=== PATIENT | male | born 1965 | race Hispanic/Latino ===

== ENCOUNTER 2024-06-19 12:19 | Emergency (ER) | payer OTHER ==
[~2024-06-19] VITALS: Ht 172.7 cm; Wt 72.6 kg
[2024-06-19 12:23] VITALS: TEMP 98.8
[2024-06-19] MEDS ORDERED: [UNRECOGNIZED DRUG - CODE] PO (12:47)
[2024-06-19] MEDS ORDERED: CLIN-141 PO (12:47)
--- NOTE | 2024-06-19 12:47 | ERN ---
General Chief Complaint: Headache Stated Complaint: MIGRANE/SINUS ATTACK Time Seen by MD: 12:21 Source: patient History of Present Illness Initial Comments PATIENT IS A 59-YEAR-OLD MALE COMING IN TO BE EVALUATED FOR LEFT FACIAL DISCOMFORT. PATIENT STATES HE HAS A EXTENSIVE HISTORY OF SINUSITIS AND FREQUENTLY GETS FLARE-UPS. PATIENT HAS NOT BEEN EVALUATED BY HIS PCP SINCE HE MOVED TO THIS AREA AND DOES NOT HAVE A LOCAL PCP. Allergies: Coded Allergies: Penicillins (Unverified Allergy, Unknown, 06/19/24) Past Medical History Past Medical History: Diabetes-Type II, High Cholesterol, Hypertension Past Surgical History: Other Surgical History Other: ABDOMINAL SX AND MESH PLACEMENT ROS Dictation CONSTITUTIONAL: NO CHILLS, NO FEVER, NO WEAKNESS, NO DIAPHORESIS, NO MALAISE. HEAD/FACE: NO SIGNS OF TRAUMA. EENT: NO EYE PAIN, NO BLURRED VISION, NO TEARING, NO DOUBLE VISION, NO EAR PAIN, NO EAR DISCHARGE, NO NOSE PAIN, NO NASAL CONGESTION, NO THROAT PAIN, NO THROAT SWELLING, NO MOUTH PAIN. RESPIRATORY: COUGH, NO ORTHOPNEA, NO SOB, NO STRIDOR, NO WHEEZING. CARDIOVASCULAR: NO CHEST PAIN, NO EDEMA, NO PALPITATIONS, NO SYNCOPE. GASTROINTESTINAL/ABDOMINAL: NO ABDOMINAL PAIN, NO CONSTIPATION, NO DIARRHEA, NO NAUSEA, NO VOMITING. GENITOURINARY: NO ABNORMAL DISCHARGE, NO DYSURIA, NO FREQUENT URINATION, NO HEMATURIA. NO COMPLAINTS OF PAIN IN THE GENITALS. MUSCULOSKELETAL: NO BACK PAIN, NO GOUT, NO JOINT PAIN, NO JOINT SWELLING, NO MUSCLE PAIN, NO MUSCLE STIFFNESS, NO NECK PAIN. INTEGUMENTARY: NO CHANGE IN COLOR, NO CHANGE IN HAIR/NAILS, NO DRYNESS, NO LESION, NO LUMPS, NO RASH. NEUROLOGICAL/PSYCH: NO ANXIETY, NOT DEPRESSED, NO EMOTIONAL PROBLEM, NO HEADACHE, NO NUMBNESS, NO PRE-EXISTING DEFICIT, NO HISTORY OF SEIZURES, NO TREMORS, NO WEAKNESS. HEMATOLOGIC/LYMPHATIC: NOT ANEMIC, NO HISTORY OF BLOOD CLOTS, NO APPARENT BLEEDING, NO BRUISING, GLANDS NOT SWOLLEN. ALL SYSTEMS NEGATIVE, EXCEPT NOTED. Physical Exam Physical Exam Dictation VITAL SIGNS: REVIEWED. GENERAL APPEARANCE: ALERT, ORIENTED X3, NO ACUTE DISTRESS, OBESE. HEAD AND FACE: NON-TRAUMATIC. EYES: PERRL, PINK CONJUNCTIVAS, EYELID NO TRAUMA, ANTERIOR CHAMBER CLEAR. EARS: PINNAS INTACT AND NO SIGNS OF TRAUMA OR ERYTHEMA. EAR CANALS CLEAR AND NO DISCHARGE. TMS ERYTHEMA. NOSE: NO DISCHARGE, NO BLEEDING. LEFT SIDE NASAL TURBINATE SWELLING OROPHARYNX: MOUTH NORMAL, TEETH NO CARIES, TONGUE PINK. PHARYNX CLEAR, ERYTHEMA. TONSILS NO EXUDATES, NO ABSCESSES NOTED. MUCOUS MEMBRANE MOIST. NECK: SUPPLE, NON-TENDER, NO THYROMEGALY, NO MASSES, NO JVD, NO BRUITS. BREAST: DEFERRED. CHEST: NO TENDERNESS, NO CREPITUS, NO PARADOXICAL MOVEMENT, NO RETRACTIONS. LUNGS: CLEAR, WELL-VENTILATED, SYMMETRIC, NO RALES, NO WHEEZING, NO RHONCHI, NO STRIDOR, GOOD BREATH SOUNDS BILATERALLY. HEART: REGULAR RATE, REGULAR RHYTHM, NO MURMUR, NO GALLOPS. VASCULAR: NO PERIPHERAL EDEMA. ABDOMEN: SOFT, POSITIVE BOWEL SOUNDS, NONDISTENDED, NO GUARDING, NONTENDER, NO REBOUND, NO MASSES NO HEPATOMEGALY, NO SPLENOMEGALY, NO COTE'S SIGN, NO HERNIAS. RECTAL: DEFERRED. GENITAL: DEFERRED. NEUROLOGICAL: NORMAL SPEECH, GROSS MOTOR FUNCTION INTACT, GROSS SENSORY FUNCTION INTACT. MUSCULOSKELETAL: NECK NONTENDER, FULL RANGE OF MOTION, BACK NONTENDER, FULL RANGE OF MOTION. EXTREMITIES: NONTENDER, FULL RANGE OF MOTION. SKIN: COLOR PINK, DRY, NO TURGOR, NO RASH, NO LACERATIONS, NO ABRASIONS, NO CONTUSIONS. LYMPHATICS: DEFERRED. Results Laboratory and Microbiology Labs Reviewed?: Yes MDM MDM: DIFFERENTIAL DIAGNOSIS: LEFT MAXILLARY SINUS TENDERNESS, SINUSITIS PATIENT IS A 59-YEAR-OLD MALE COMING IN TO BE EVALUATED FOR LEFT FACIAL DISCOMFORT. PATIENT HAS A EXTENSIVE HISTORY OF SINUSITIS. HE STATES HE HAS BEEN HAVING THIS DISCOMFORT FOR PAST 30 DAYS. PATIENT WILL BE DISCHARGED WITH A DIAGNOSIS OF LEFT MAXILLARY SINUS. ANTIBIOTICS WILL BE PROVIDED PATIENT HAS BEEN STABLE THROUGHOUT ER VISIT. ED Course Vital Signs Date Time Temp Pulse Resp B/P (MAP) Pulse Ox O2 Delivery O2 Flow Rate FiO2 06/19/24 12:23 98.8 80 20 161/90 97 Room Air 0 DX & DISP Disposition: Discharge Departure Impression: Primary Impression: Left maxillary sinusitis Condition: Stable Scripts Phenylephrine/Acetaminophn/Cpm (Flonase Headache 325-2-5Mg Cpt) 5 Mg-325 Mg-2 Mg Tablet 1 EACH PO BID for 7 Days, #14 TAB Prov: SHERIN KEMP MD 06/19/24 Clindamycin HCl (Clindamycin HCl) 300 Mg Capsule 1 CAP PO TID for 10 Days, #30 CAP 0 Refills Prov: SHERIN KEMP MD 06/19/24 Additional Instructions: FOLLOW-UP WITH PRIMARY CARE PROVIDER IN 1 TO 2 DAYS. TAKE MEDICATIONS DIRECTED HERE IN THE EMERGENCY ROOM. OKAY TO CONTINUE HOME MEDICATIONS UNLESS OTHERWISE DISCUSSED DURING YOUR VISIT IN THE EMERGENCY ROOM TODAY. RETURN TO YOUR NEAREST EMERGENCY ROOM IF SYMPTOMS WORSEN OR IF THERE IS NO IMPROVEMENT. CALL 911 IF YOU NEED IMMEDIATE ASSISTANCE. TAKE TYLENOL [id number] NEEDED AND IF NO CONTRAINDICATIONS ARE PRESENT. INCREASE ORAL HYDRATION. A WOUND CULTURE OR URINE CULTURE WAS ORDERED HERE IN THE EMERGENCY ROOM DEPARTMENT PLEASE FOLLOW-UP WITH PRIMARY CARE PROVIDER AND ADVISE THEM TO GET REPEAT PORTS FROM OUR FACILITY. IF YOU HAD ANY RYLAN WRAP/SPLINTS THAT WERE APPLIED HERE, PLEASE DO NOT REMOVE THEM UNTIL YOU SEE YOUR PRIMARY CARE OR SPECIALTY. REFERRALS: Referrals: DAVID STRINGER DO (PCP) Time of Disposition: 12:45 SHERIN KEMP MD Jun 19, 2024 12:47
[2024-06-19 12:58] VITALS: BP 143/88; PULSE 80; RESP 16; O2SAT 98
== END 2024-06-19 13:02 | disposition home or self-care (01) ==
LOC: EDH 12:19
DX: J32.0 Chronic maxillary sinusitis (principal); E11.9 Type 2 diabetes mellitus without complications; E78.00 Pure hypercholesterolemia, unspecified; I10 Essential (primary) hypertension; Z88.0 Allergy status to penicillin; Z98.890 Other specified postprocedural states
CPT/HCPCS: 99283

== ENCOUNTER 2024-06-21 15:42 | Emergency (ER) | payer OTHER ==
[~2024-06-21] VITALS: Ht 172.7 cm; Wt 74.8 kg
[~2024-06-21 15:42] MED LIST: CLIN-141 PO; [UNRECOGNIZED DRUG - CODE] PO
--- NOTE | 2024-06-21 16:15 | ERN ---
General Chief Complaint: Headache Stated Complaint: HEAD DISCOMFORT LEADING TO LEFT EYE PAIN/BLURRY Time Seen by MD: 15:44 History of Present Illness Initial Comments 59-year-old male who presents for left-sided face discomfort. Reports he has had it for years. Has been diagnosed with migraines and cluster headaches in the past. He recently was seen at this ER and was diagnosed with sinusitis. He was discharged with Flonase and clindamycin. He reports Flonase is not helping and the clindamycin is making him switch. He still reports headache. He denies any blurry vision, nausea vomiting, neck pain, or focal neurologic deficits. Medical history: Diabetes, hypertension, high cholesterol Allergies: Coded Allergies: Penicillins (Unverified Allergy, Unknown, 06/19/24) Home Meds Active Scripts Phenylephrine/Acetaminophn/Cpm (Flonase Headache 325-2-5Mg Cpt) 5 Mg-325 Mg-2 Mg Tablet, 1 EACH PO BID for 7 Days, #14 TAB Prov:SHERIN KEMP MD 06/19/24 Clindamycin HCl (Clindamycin HCl) 300 Mg Capsule, 1 CAP PO TID for 10 Days, #30 CAP 0 Refills Prov:SHERIN KEMP MD 06/19/24 Past Medical History Past Medical History: Diabetes-Type II, High Cholesterol, Hypertension, Migrai blanka Past Surgical History: Other Surgical History Other: ABDOMINAL SX AND MESH PLACEMENT ROS Dictation CONSTITUTIONAL: No chills, no fever, no weakness, no diaphoresis, no malaise. HEAD/FACE: No signs of trauma. EENT: No eye pain, no blurred vision, no tearing, no double vision, no ear pain, no ear discharge, no nose pain, no nasal congestion, no throat pain, no throat swelling, no mouth pain. RESPIRATORY: No cough, no orthopnea, no SOB, no stridor, no wheezing. CARDIOVASCULAR: No chest pain, no edema, no palpitations, no syncope. GASTROINTESTINAL/ABDOMINAL: No abdominal pain, no constipation, no diarrhea, no nausea, no vomiting. GENITOURINARY: No abnormal discharge, no dysuria, no frequent urination, no hematuria. No complaints of pain in the genitals. MUSCULOSKELETAL: No back pain, no gout, no joint pain, no joint swelling, no muscle pain, no muscle stiffness, no neck pain. INTEGUMENTARY: No change in color, no change in hair/nails, no dryness, no lesion, no lumps, no rash. NEUROLOGICAL/PSYCH: Left-sided headache HEMATOLOGIC/LYMPHATIC: Not anemic, no history of blood clots, no apparent bleeding, no bruising, glands not swollen. All Systems Negative, Except as Noted. Physical Exam Physical Exam Dictation VITAL SIGNS: Reviewed. GENERAL APPEARANCE: Alert, oriented x3, no acute distress HEAD AND FACE: Non-traumatic. EYES: PERRL, pink conjunctivas, eyelid no trauma, anterior chamber clear. EARS: Pinnas intact and no signs of trauma or erythema. Ear canals clear and no discharge. TMs no erythema. NOSE: No discharge, no bleeding. OROPHARYNX: Mouth normal, teeth no caries, tongue pink. Pharynx clear, no erythema. Tonsils no exudates, no abscesses noted. Mucous membrane moist. NECK: Supple, non-tender, no thyromegaly, no masses, no JVD, no bruits. BREAST: Deferred. CHEST: No tenderness, no crepitus, no paradoxical movement, no retractions. LUNGS: Clear, well-ventilated, symmetric, no rales, no wheezing, no rhonchi, no stridor, good breath sounds bilaterally. HEART: Regular rate, regular rhythm, no murmur, no gallops. VASCULAR: No peripheral edema. ABDOMEN: Soft, positive bowel sounds, nondistended, no guarding, nontender, no rebound, no masses no hepatomegaly, no splenomegaly, no Kaba's sign, no hernias. RECTAL: Deferred. GENITAL: Deferred. NEUROLOGICAL: Normal speech, gross motor function intact, gross sensory function intact. MUSCULOSKELETAL: Neck nontender, full range of motion, back nontender, full range of motion. EXTREMITIES: Nontender, full range of motion. SKIN: Color pink, dry, no turgor, no rash, no lacerations, no abrasions, no contusions. LYMPHATICS: Deferred. ED Course Orders Procedure Category Date Status Time Prochlorperazine PHA 06/21/24 Complete 10mg/2ml Inj 16:00 Diphenhydramine Hcl PHA 06/21/24 Complete (Benadryl Inj) 16:00 Ketorolac PHA 06/21/24 Complete Tromethamine 15mg/Ml 16:00 Dexamethasone 4mg/Ml PHA 06/21/24 Complete 1ml Vial (Dexametha 16:00 0.9%Nacl 1000ml (Ns PHA 06/21/24 Complete 1000ml) 16:00 Ct Head/Brain W/O CT 06/21/24 Resulted Contrast 18:16 Current Medications Medications (Trade) Dose Ordered Sig/Antonio Route PRN Reason Start Time Stop Time Status Last Admin Dose Admin Dexamethasone Sodium Phosphate (dexaMETHasone 4MG/ML 1ML VIAL) 4 mg ONCE ONCE IV 06/21/24 16:00 06/21/24 16:01 DC 06/21/24 17:32 Diphenhydramine HCl (BENAdryl INJ) 25 mg ONCE ONCE IV 06/21/24 16:00 06/21/24 16:01 DC Ketorolac Tromethamine (toRADol) 15 mg ONCE ONCE IV 06/21/24 16:00 06/21/24 16:01 DC 06/21/24 17:32 Prochlorperazine Edisylate (Compazine 10mg/ 2ml Inj) 5 mg ONCE ONCE IV 06/21/24 16:00 06/21/24 16:01 DC 06/21/24 17:32 Sodium Chloride 1,000 ml @ 0 mls/hr ONCE ONCE IV 06/21/24 16:00 06/21/24 16:01 DC 06/21/24 17:33 Vital Signs Date Time Temp Pulse Resp B/P (MAP) Pulse Ox O2 Delivery O2 Flow Rate FiO2 06/21/24 18:32 97.3 61 18 133/63 97 Room Air* 0 21 06/21/24 15:43 98.4 78 18 155/84 97 Room Air 0 DX & DISP Disposition: Discharge Departure Impression: Primary Impression: Headache Condition: Stable Scripts Azithromycin (Azithromycin) 250 Mg Tablet 1 TAB PO AD for 5 Days, #6 TAB 0 Refills 2 the first day followed by 1 for days 2-5 Prov: DONA MISTRY DO 06/21/24 Butalb/Acetaminophen/Caffeine (Fioricet) 50 Mg-325 Mg-40 Mg Tab 1 TAB PO Q4H for headache, #20 TAB Prov: DONA MISTRY DO 06/21/24 Additional Instructions: You may have cluster headaches, trigeminal neuralgia, or possibly complex migraines. The CT scan of your brain is unremarkable. Your symptoms may be due to sinus discomfort. Stop taking the clindamycin since you are having side effects. I have prescribed azithromycin instead. Take as prescribed. I've also prescribed fioricet. Try this medication the next time you get a headache. This medication has been shown to be effective with some migraines. Please follow up with Dr Heredia. Return to the emergency department as needed. Referrals: DAVID STRINGER DO (PCP) DONA MISTRY DO Jun 21, 2024 16:15
[2024-06-21] MEDS: DiphenhydrAMINE HCL 50 MG/ML VIAL IV ONE (17:31)
[2024-06-21] MEDS: PROCHLORPERAZINE 10MG/2ML INJ IV ONE (17:32)
[2024-06-21] MEDS: dexaMETHasone SOD PHOSPHATE 4 MG/ML 1ML VIAL IV ONE (17:32)
[2024-06-21] MEDS: ketOROlac 15MG/ML VIAL (15MG/ML) IV ONE (17:32)
[2024-06-21] MEDS: 0.9%NACL 1000ML 1,000 ML IV ONE (17:33)
--- NOTE | 2024-06-21 18:46 | HMCIMG ---
CT HEAD/BRAIN W/O CONTRAST HISTORY: Headaches COMPARISON: None TECHNIQUE: Multiple sequential axial images of the head were obtained from the base of the skull through vertex. Patient was not given contrast through intravenous route. FINDINGS: The ventricles and extraventricular CSF spaces are nondilated for patient's age. There is no midline shift, mass effect or herniation. No acute intracranial bleed is seen. Visualized portion of the paranasal sinuses are grossly within normal limits. IMPRESSION: 1. No acute intracranial bleed is seen. CT was performed with one or more following dose reduction techniques: automated exposure control, adjustment of the mA and kv according to patient's size, or use of a iterative reconstruction technique.
[2024-06-21] MEDS ORDERED: AZIT250T9 PO (18:52)
[2024-06-21] MEDS ORDERED: FIORIT PO (18:52)
[2024-06-21 19:18] VITALS: BP 130/67; PULSE 64; RESP 20; TEMP 97.4; O2SAT 97
== END 2024-06-21 19:19 | disposition home or self-care (01) ==
LOC: EDH 15:42
DX: G43.909 Migraine, unspecified, not intractable, without status migrainosus (principal); E11.9 Type 2 diabetes mellitus without complications; E78.00 Pure hypercholesterolemia, unspecified; I10 Essential (primary) hypertension; Z88.0 Allergy status to penicillin
CPT/HCPCS: 99285; 96374; 70450; 96375; 96361; J1100; J1200; J7030; J0780; J1885

== ENCOUNTER 2024-06-27 14:55 | Emergency (ER) | payer OTHER ==
[~2024-06-27] VITALS: Ht 172.7 cm; Wt 72.6 kg
[~2024-06-27 14:55] MED LIST changes: +AZIT250T9 PO; +FIORIT PO
[2024-06-27 15:24] VITALS: BP 136/81; PULSE 66; RESP 20; TEMP 98.7; O2SAT 100
[2024-06-27] MEDS: 0.9%NACL 1000ML 1,000 ML IV ONE (15:24)
[2024-06-27] MEDS: DiphenhydrAMINE HCL 50 MG/ML VIAL IV ONE (15:24)
[2024-06-27] MEDS: PROCHLORPERAZINE 10MG/2ML INJ IV ONE (15:24)
[2024-06-27 15:37] LABS: CREATININE 1.2 mg/dL (0.5-1.3); POTASSIUM 4.4 mmol/L (3.5-5.1)
[2024-06-27 15:48] LABS: BASOPHILS # (AUTO) 0.03 K/uL (0.00-0.20); BASOPHILS % (AUTO) 0.3 % (0.0-5.0); EOSINOPHILS # (AUTO) 0.18 K/uL (0.00-0.70); HEMATOCRIT 45.7 % (42-54); IMMATURE GRANULOCYTE ABSOLUTE 0.02 K/uL (0-1); LYMPHOCYTES # (AUTO) 2.8 K/uL (1.0-4.8); LYMPHOCYTES % (AUTO) 31.1 % (21.0-51.0); MEAN CORPUSCULAR HEMOGLOBIN 28.6 pg (27.0-33.0); MEAN CORPUSCULAR HGB CONC 33.5 g/dL (32.0-36.0); MEAN CORPUSCULAR VOLUME 85.4 fL (79-99); MONOCYTES # (AUTO) 0.6 K/uL (0.1-1.0); MONOCYTES % (AUTO) 6.7 % (3.0-13.0); NEUTROPHILS # (AUTO) 5.3 K/uL (1.8-7.7); NEUTROPHILS % (AUTO) 59.7 % (40.0-77.0); PLATELET COUNT (AUTO) 253 K/uL (130-400); RED BLOOD CELL COUNT(AUTO) 5.35 MIL/uL (4.50-6.20); RED CELL DISTRIBUTION WIDTH 13.2 % (11.0-15.5); WHITE BLOOD COUNT (AUTO) 8.8 K/uL (4.8-10.8)
[2024-06-27] MEDS ORDERED: LORA10TA7 PO (15:58)
[2024-06-27] MEDS ORDERED: FLUT16H NS (15:58)
--- NOTE | 2024-06-27 15:58 | ERN ---
General Chief Complaint: Headache Stated Complaint: SORE THROAT, LEFT HEAD PRESSURE Time Seen by MD: 15:00 Source: patient History of Present Illness Initial Comments PATIENT IS A 59-YEAR-OLD COMING IN TO BE EVALUATED FOR CHRONIC HEADACHES. PATIENT WAS SEEN AT ER SEVERAL MONTHS OF THE REASON. ALONG WITH THE HEADACHE PATIENT HAS BEEN HAVING NASAL CONGESTION AND SORE THROAT. Allergies: Coded Allergies: Penicillins (Unverified Allergy, Unknown, 06/19/24) Home Meds Active Scripts Azithromycin (Azithromycin) 250 Mg Tablet, 1 TAB PO AD for 5 Days, #6 TAB 0 Refills 2 the first day followed by 1 for days 2-5 Prov:DONA MISTRY DO 06/21/24 Butalb/Acetaminophen/Caffeine (Fioricet) 50 Mg-325 Mg-40 Mg Tab, 1 TAB PO Q4H for headache, #20 TAB Prov:DONA MISTRY DO 06/21/24 Phenylephrine/Acetaminophn/Cpm (Flonase Headache 325-2-5Mg Cpt) 5 Mg-325 Mg-2 Mg Tablet, 1 EACH PO BID for 7 Days, #14 TAB Prov:SHERIN KEMP MD 06/19/24 Clindamycin HCl (Clindamycin HCl) 300 Mg Capsule, 1 CAP PO TID for 10 Days, #30 CAP 0 Refills Prov:SHERIN KEMP MD 06/19/24 Past Medical History Past Medical History: Diabetes-Type II, High Cholesterol, Hypertension, Migraines Past Surgical History: Other Surgical History Other: ABDOMINAL SX AND MESH PLACEMENT ROS Dictation CONSTITUTIONAL: NO CHILLS, NO FEVER, NO WEAKNESS, NO DIAPHORESIS, NO MALAISE. HEAD/FACE: NO SIGNS OF TRAUMA. EENT: NO EYE PAIN, NO BLURRED VISION, NO TEARING, NO DOUBLE VISION, NO EAR PAIN, NO EAR DISCHARGE, NOSE PAIN, NASAL CONGESTION, THROAT PAIN, NO THROAT SWELLING, NO MOUTH PAIN. RESPIRATORY: NO COUGH, NO ORTHOPNEA, NO SOB, NO STRIDOR, NO WHEEZING. CARDIOVASCULAR: NO CHEST PAIN, NO EDEMA, NO PALPITATIONS, NO SYNCOPE. GASTROINTESTINAL/ABDOMINAL: NO ABDOMINAL PAIN, NO CONSTIPATION, NO DIARRHEA, NO NAUSEA, NO VOMITING. GENITOURINARY: NO ABNORMAL DISCHARGE, NO DYSURIA, NO FREQUENT URINATION, NO HEMATURIA. NO COMPLAINTS OF PAIN IN THE GENITALS. MUSCULOSKELETAL: NO BACK PAIN, NO GOUT, NO JOINT PAIN, NO JOINT SWELLING, NO MUSCLE PAIN, NO MUSCLE STIFFNESS, NO NECK PAIN. INTEGUMENTARY: NO CHANGE IN COLOR, NO CHANGE IN HAIR/NAILS, NO DRYNESS, NO LESION, NO LUMPS, NO RASH. NEUROLOGICAL/PSYCH: NO ANXIETY, NOT DEPRESSED, NO EMOTIONAL PROBLEM, NO HEADACHE, NO NUMBNESS, NO PRE-EXISTING DEFICIT, NO HISTORY OF SEIZURES, NO TREMORS, NO WEAKNESS. HEMATOLOGIC/LYMPHATIC: NOT ANEMIC, NO HISTORY OF BLOOD CLOTS, NO APPARENT BLEEDING, NO BRUISING, GLANDS NOT SWOLLEN. ALL SYSTEMS NEGATIVE, EXCEPT NOTED. Physical Exam Physical Exam Dictation VITAL SIGNS: REVIEWED. GENERAL APPEARANCE: ALERT, ORIENTED X3, NO ACUTE DISTRESS, OBESE. HEAD AND FACE: NON-TRAUMATIC. EYES: PERRL, PINK CONJUNCTIVAS, EYELID NO TRAUMA, ANTERIOR CHAMBER CLEAR. EARS: PINNAS INTACT AND NO SIGNS OF TRAUMA OR ERYTHEMA. EAR CANALS CLEAR AND NO DISCHARGE. TMS NO ERYTHEMA. NOSE: NO DISCHARGE, NO BLEEDING. BILATERAL NASAL TURBINATE SWELLING OROPHARYNX: MOUTH NORMAL, TEETH NO CARIES, TONGUE PINK. PHARYNX CLEAR, ERYTHEMA. TONSILS NO EXUDATES, NO ABSCESSES NOTED. MUCOUS MEMBRANE MOIST. NECK: SUPPLE, NON-TENDER, NO THYROMEGALY, NO MASSES, NO JVD, NO BRUITS. BREAST: DEFERRED. CHEST: NO TENDERNESS, NO CREPITUS, NO PARADOXICAL MOVEMENT, NO RETRACTIONS. LUNGS: CLEAR, WELL-VENTILATED, SYMMETRIC, NO RALES, NO WHEEZING, NO RHONCHI, NO STRIDOR, GOOD BREATH SOUNDS BILATERALLY. HEART: REGULAR RATE, REGULAR RHYTHM, NO MURMUR, NO GALLOPS. VASCULAR: NO PERIPHERAL EDEMA. ABDOMEN: SOFT, POSITIVE BOWEL SOUNDS, NONDISTENDED, NO GUARDING, NONTENDER, NO REBOUND, NO MASSES NO HEPATOMEGALY, NO SPLENOMEGALY, NO COTE'S SIGN, NO HERNIAS. RECTAL: DEFERRED. GENITAL: DEFERRED. NEUROLOGICAL: NORMAL SPEECH, GROSS MOTOR FUNCTION INTACT, GROSS SENSORY FUNCTION INTACT. MUSCULOSKELETAL: NECK NONTENDER, FULL RANGE OF MOTION, BACK NONTENDER, FULL RANGE OF MOTION. EXTREMITIES: NONTENDER, FULL RANGE OF MOTION. SKIN: COLOR PINK, DRY, NO TURGOR, NO RASH, NO LACERATIONS, NO ABRASIONS, NO CONTUSIONS. LYMPHATICS: DEFERRED. Results Laboratory and Microbiology Lab and Micro Result Laboratory Tests Test 06/27/24 15:02 White Blood Count 8.8 K/uL (4.8-10.8) Red Blood Count 5.35 MIL/uL (4.50-6.20) Hemoglobin 15.3 g/dL (14.0-18.0) Hematocrit 45.7 % (42-54) Mean Corpuscular Volume 85.4 fL (79-99) Mean Corpuscular Hemoglobin 28.6 pg (27.0-33.0) Mean Corpuscular Hemoglobin Concent 33.5 g/dL (32.0-36.0) Red Cell Distribution Width 13.2 % (11.0-15.5) Platelet Count 253 K/uL (130-400) Mean Platelet Volume 9.9 fL (7.5-10.5) Immature Granulocyte % (Auto) 0.2 % (0-1) Neutrophils (%) (Auto) 59.7 % (40.0-77.0) Lymphocytes (%) (Auto) 31.1 % (21.0-51.0) Monocytes (%) (Auto) 6.7 % (3.0-13.0) Eosinophils (%) (Auto) 2.0 % (0.0-8.0) Basophils (%) (Auto) 0.3 % (0.0-5.0) Neutrophils # (Auto) 5.3 K/uL (1.8-7.7) Lymphocytes # (Auto) 2.8 K/uL (1.0-4.8) Monocytes # (Auto) 0.6 K/uL (0.1-1.0) Eosinophils # (Auto) 0.18 K/uL (0.00-0.70) Basophils # (Auto) 0.03 K/uL (0.00-0.20) Absolute Immature Granulocyte (auto 0.02 K/uL (0-1) Nucleated Red Blood Cells 0.0 % (0.0-0.19) Sodium Level 143 mmol/L (136-145) Potassium Level 4.4 mmol/L (3.5-5.1) Chloride Level 106 mmol/L (101-111) Carbon Dioxide Level 31 mmol/L (21-32) Blood Urea Nitrogen 13 mg/dL (7-18) Creatinine 1.2 mg/dL (0.5-1.3) Glomerular Filtration Rate Calc 70 mL/min (>90) Random Glucose 102 mg/dL (70-105) Total Calcium 8.9 mg/dL (8.5-10.1) Total Creatine Kinase 56 U/L (21-232) Labs Reviewed?: Yes MDM MDM: DIFFERENTIAL DIAGNOSIS: SINUSITIS, TENSION HEADACHE, CHRONIC MIGRAINES PATIENT IS A 59-YEAR-OLD MALE COMING IN TO BE EVALUATED FOR HEADACHES. PATIENT STATES HE HAS A HISTORY OF CHRONIC HEADACHES AND FREQUENTLY GETS EXACERBATED. ON PHYSICAL EXAM NASAL TURBINATE SWELLING BILATERAL LEFT MAXILLARY SINUS TENDERNESS. PATIENT WILL BE DISCHARGED WITH A DIAGNOSIS OF SINUSITIS AND TENSION HEADACHES WELL CHRONIC MIGRAINES. I ADVISED HIM APPROPRIATE FOLLOW UP WITH PCP IN 1-2 DAYS ED Course Orders Procedure Category Date Status Time Cbc With Differential LAB 06/27/24 Complete 15:10 Basic Metabolic Panel LAB 06/27/24 Complete 15:10 Creatine Kinase, Total LAB 06/27/24 Complete 15:10 0.9%Nacl 1000ml (Ns PHA 06/27/24 Complete 1000ml) 15:30 Diphenhydramine Hcl PHA 06/27/24 Complete (Benadryl Inj) 15:30 Prochlorperazine PHA 06/27/24 Complete 10mg/2ml Inj 15:30 Dexamethasone 4mg/Ml PHA 06/27/24 Verified 1ml Vial (Dexametha 16:00 Current Medications Medications (Trade) Dose Ordered Sig/Antonio Route PRN Reason Start Time Stop Time Status Last Admin Dose Admin Diphenhydramine HCl (BENAdryl INJ) 25 mg ONCE ONCE IV 06/27/24 15:30 06/27/24 15:31 DC 06/27/24 15:24 Prochlorperazine Edisylate (Compazine 10mg/ 2ml Inj) 10 mg ONCE ONCE IV 06/27/24 15:30 06/27/24 15:31 DC 06/27/24 15:24 Sodium Chloride 1,000 ml @ 0 mls/hr ONCE ONCE IV 06/27/24 15:30 06/27/24 15:31 DC 06/27/24 15:24 Vital Signs Date Time Temp Pulse Resp B/P (MAP) Pulse Ox O2 Delivery O2 Flow Rate FiO2 06/27/24 15:24 98.8 66 20 136/81 100 Room Air* 0 21 06/27/24 14:58 98.2 79 16 145/108 97 Room Air 0 DX & DISP Disposition: Discharge Departure Impression: Primary Impression: Left maxillary sinusitis Additional Impression: Headache Condition: Stable Scripts Loratadine (Loratadine) 10 Mg Tablet 1 TAB PO DAILY for allergy symptoms for 30 Days, #30 TAB 0 Refills Prov: SHERIN KEMP MD 06/27/24 Fluticasone Propionate (Flonase Nasal Wagner) 50 Mcg/Actuation Wagner 2 SPRAY NS DAILY, #16 GM 0 Refills Prov: SHERIN KEMP MD 06/27/24 Additional Instructions: FOLLOW-UP WITH PRIMARY CARE PROVIDER IN 1 TO 2 DAYS. TAKE MEDICATIONS DIR ECTED HERE IN THE EMERGENCY ROOM. OKAY TO CONTINUE HOME MEDICATIONS UNLESS OTHERWISE DISCUSSED DURING YOUR VISIT IN THE EMERGENCY ROOM TODAY. RETURN TO YOUR NEAREST EMERGENCY ROOM IF SYMPTOMS WORSEN OR IF THERE IS NO IMPROVEMENT. CALL 911 IF YOU NEED IMMEDIATE ASSISTANCE. TAKE TYLENOL [id number] NEEDED AND IF NO CONTRAINDICATIONS ARE PRESENT. INCREASE ORAL HYDRATION. A WOUND CULTURE OR URINE CULTURE WAS ORDERED HERE IN THE EMERGENCY ROOM DEPARTMENT PLEASE FOLLOW-UP WITH PRIMARY CARE PROVIDER AND ADVISE THEM TO GET REPEAT PORTS FROM OUR FACILITY. IF YOU HAD ANY RYLAN WRAP/SPLINTS THAT WERE APPLIED HERE, PLEASE DO NOT REMOVE THEM UNTIL YOU SEE YOUR PRIMARY CARE OR SPECIALTY. REFERRALS: Referrals: DAVID STRINGER DO (PCP) DEV REILLY III, MD Time of Disposition: 15:57 SHERIN KEMP MD Jun 27, 2024 15:58
[2024-06-27] MEDS: dexaMETHasone SOD PHOSPHATE 4 MG/ML 1ML VIAL IV ONE (15:59)
== END 2024-06-27 16:08 | disposition home or self-care (01) ==
LOC: EDH 14:55
DX: J32.0 Chronic maxillary sinusitis (principal); E11.9 Type 2 diabetes mellitus without complications; E78.00 Pure hypercholesterolemia, unspecified; G43.909 Migraine, unspecified, not intractable, without status migrainosus; I10 Essential (primary) hypertension; Z88.0 Allergy status to penicillin
CPT/HCPCS: 99284; 96374; 96375; 82550; 80048; 85025; 36415; J1100; J1200; J7030; J0780